=== PATIENT | female | born 1975 | race African-American/Black ===

== ENCOUNTER 2016-09-13 12:18 | Emergency (ER) | payer OTHER ==
[~2016-09-13] VITALS: Ht 175.3 cm; Wt 65.4 kg
[~2016-09-13 12:18] MED LIST: CEPHALEXIN500 MG PO; FIORICET PO; FLEXERIL PO; LISINOPRIL10 MG PO; MEDDOSEPAK PO; NAPROSYN500 MG PO; PENICILLN VK500 MG PO; PREDNISONE10 MG PO; ROBITUSSIN AC10 ML PO; TENORMIN25 MG PO; TRAMADOL HYDROC50 MG PO; ULTRAM50 M1 PO; ZOFRAN ODT4 MG PO
[2016-09-13 12:20] VITALS: BP 147/89
[2016-09-13] MEDS ORDERED: ATENOLOL25 MG PO (12:27)
[2016-09-13] MEDS ORDERED: FLUOXETINE10 M2 PO (12:29)
== END 2016-09-13 13:25 | disposition left against medical advice (07) | DRG 605 ==
LOC: ED 12:18
DX: S50.311A Abrasion of right elbow, initial encounter (principal); I10 Essential (primary) hypertension; S90.811A Abrasion, right foot, initial encounter; M48.00 Spinal stenosis, site unspecified; F17.210 Nicotine dependence, cigarettes, uncomplicated; V49.88XA Car occupant (driver) (passenger) injured in other specified transport accidents, initial encounter; Z91.19 Patient's noncompliance with other medical treatment and regimen

== ENCOUNTER 2016-11-04 10:33 | Emergency (ER) | payer OTHER ==
[~2016-11-04] VITALS: Ht 175.3 cm; Wt 65.0 kg
[~2016-11-04 10:33] MED LIST changes: +ATENOLOL25 MG PO; +FLUOXETINE10 M2 PO
[2016-11-04] MEDS ORDERED: MIRTAZAPINE15 MG PO (10:41)
[2016-11-04] MEDS ORDERED: SOMA350 MG PO (11:27)
[2016-11-04 11:35] VITALS: BP 123/75
== END 2016-11-04 11:35 | disposition home or self-care (01) | DRG 93 ==
LOC: ED 10:33
DX: G89.29 Other chronic pain (principal); I10 Essential (primary) hypertension; M79.601 Pain in right arm; M25.531 Pain in right wrist; Z72.0 Tobacco use; M54.5 Low back pain

== ENCOUNTER 2017-02-07 16:38 | Emergency (ER) | payer OTHER ==
[~2017-02-07] VITALS: Ht 175.3 cm; Wt 70.0 kg
[~2017-02-07 16:38] MED LIST changes: +MIRTAZAPINE15 MG PO; +SOMA350 MG PO
[2017-02-07 17:15] LABS: URINE BILIRUBIN - DIPSTICK NEGATIVE (NEGATIVE); URINE BLOOD DIPSTICK LARGE (NEGATIVE); URINE COLOR YELLOW; URINE GLUCOSE - DIPSTICK NEGATIVE (NEGATIVE); URINE KETONE NEGATIVE (NEGATIVE); URINE LEUK ESTERASE NEGATIVE (NEGATIVE); URINE NITRITE - DIPSTICK NEGATIVE (Negative); URINE PH 7.5 (4.5-8.0); URINE PROTEIN - DIPSTICK NEGATIVE (NEG-TRACE)
[2017-02-07 17:16] LABS: URINE CLARITY HAZY
[2017-02-07 17:23] LABS: URINE RBC 25-50 RBC/hpf (0-5); URINE SQUAMOUS EPITHELIAL CELL FEW EPI/hpf (0-FEW)
[2017-02-07] MEDS ORDERED: TAMSULOSIN0.4 MG PO (17:34)
[2017-02-07] MEDS ORDERED: TRAMADOL HYDROC50 MG PO (17:34)
[2017-02-07] MEDS ORDERED: CIPROFLOXACIN250 MG PO ×2 (17:34→20:49)
[2017-02-07 18:11] LABS: HEMATOCRIT 35.9 % (37.0-47.0); HEMOGLOBIN 11.7 g/dl (12.0-16.0); IMMATURE GRANULOCYTES 0.2 % (0.0-1.0); MEAN CELL VOLUME 79.4 fL CALC (80.0-100.0); MEAN CORPUSCULAR HGB 25.9 pG CALC (26.0-32.0); MEAN CORPUSCULAR HGB CONC 32.6 g/L CALC (32.0-36.0); NEUT# 3.17 thou/uL (2.00-7.15); RED BLOOD COUNT 4.52 mill/uL (4.20-5.60); RED CELL DISTRI WIDTH 15.2 % (11.5-15.5)
[2017-02-07 18:21] LABS: ALBUMIN 3.7 g/dL (3.2-5.0); ALKALINE PHOSPHATASE 74 u/l (38-126); ANION GAP 10 (6-22 (CALC)); BILIRUBIN, TOTAL 0.2 mg/dL (0.0-1.4); BUN 10 mg/dL (7-17); BUN/CREATININE RATIO 9 (12-20 (CALC)); CARBON DIOXIDE 25 mmol/l (22-30); CHLORIDE 113 mmol/l (95-108); CREATININE 1.1 mg/dL (0.5-1.0); GFR 55 ML/MIN (>=60 (CALC)); GFR FOR AFR.AMER. > 60 ML/MIN (>=60 (CALC)); GLUCOSE 94 mg/dL (65-105); POTASSIUM 3.8 mmol/l (3.5-5.1); SGOT/AST 17 u/l (14-36); SGPT/ALT 24 u/l (9-52); SODIUM 145 mmol/l (137-146); TOTAL PROTEIN 6.6 g/dL (6.3-8.2)
[2017-02-07 20:42] VITALS: BP 131/68
== END 2017-02-07 21:12 | disposition home or self-care (01) | DRG 392 ==
LOC: ED 16:38
PROVIDERS: Emergency Medicine
DX: R10.9 Unspecified abdominal pain (principal); M54.5 Low back pain; R31.9 Hematuria, unspecified; R10.2 Pelvic and perineal pain; R30.0 Dysuria

== ENCOUNTER 2017-03-06 00:49 | Emergency (ER) | payer OTHER ==
[~2017-03-06] VITALS: Ht 175.3 cm; Wt 67.2 kg
[~2017-03-06 00:49] MED LIST changes: +CIPROFLOXACIN250 MG PO; +TAMSULOSIN0.4 MG PO
[2017-03-06 02:13] LABS: URINE BILIRUBIN - DIPSTICK NEGATIVE (NEGATIVE); URINE BLOOD DIPSTICK LARGE (NEGATIVE); URINE COLOR YELLOW; URINE GLUCOSE - DIPSTICK NEGATIVE (NEGATIVE); URINE KETONE TRACE mg/dL (NEGATIVE); URINE NITRITE - DIPSTICK NEGATIVE (Negative); URINE PH 5.5 (4.5-8.0); URINE PROTEIN - DIPSTICK TRACE mg/dL (NEG-TRACE); URINE SPECIFIC GRAVITY >=1.030; URINE UROBILINOGEN - DIPSTICK 0.2 E.U./dL (0.2)
[2017-03-06 02:15] LABS: HEMATOCRIT 41.4 % (37.0-47.0); HEMOGLOBIN 13.5 g/dl (12.0-16.0); IMMATURE GRANULOCYTES 0.1 % (0.0-1.0); MEAN CORPUSCULAR HGB 25.8 pG CALC (26.0-32.0); MEAN CORPUSCULAR HGB CONC 32.6 g/L CALC (32.0-36.0); NEUT# 3.63 thou/uL (2.00-7.15); RED BLOOD COUNT 5.24 mill/uL (4.20-5.60); RED CELL DISTRI WIDTH 14.3 % (11.5-15.5)
[2017-03-06 02:16] LABS: URINE CLARITY SL CLOUDY; URINE LEUK ESTERASE MODERATE (NEGATIVE)
[2017-03-06 02:19] LABS: BARBITURATES NEGATIVE (NEGATIVE); COCAINE POSITIVE (NEGATIVE); METHADONE NEGATIVE (NEGATIVE); OXCYCODONE NEGATIVE (NEGATIVE); TETRAHYDROCANNABIONOL POSITIVE (NEGATIVE); TRICYLIC ANTIDEPRESSANTS NEGATIVE (NEGATIVE)
[2017-03-06 02:25] LABS: URINE BACTERIA MANY hpf; URINE SQUAMOUS EPITHELIAL CELL FEW EPI/hpf (0-FEW); URINE WBC >100 WBC/hpf (0-5)
[2017-03-06 02:46] LABS: ALBUMIN 4.6 g/dL (3.2-5.0); ALKALINE PHOSPHATASE 94 u/l (38-126); ANION GAP 15 (6-22 (CALC)); BILIRUBIN, TOTAL 0.7 mg/dL (0.0-1.4); BUN 9 mg/dL (7-17); BUN/CREATININE RATIO 9 (12-20 (CALC)); CALCIUM 10.5 mg/dL (8.4-10.2); CARBON DIOXIDE 22 mmol/l (22-30); CHLORIDE 110 mmol/l (95-108); GFR > 60 ML/MIN (>=60 (CALC)); GFR FOR AFR.AMER. > 60 ML/MIN (>=60 (CALC)); GLUCOSE 111 mg/dL (65-105); POTASSIUM 3.9 mmol/l (3.5-5.1); SGOT/AST 36 u/l (14-36); SGPT/ALT 22 u/l (9-52); SODIUM 143 mmol/l (137-146); TOTAL PROTEIN 8.3 g/dL (6.3-8.2)
[2017-03-06] MEDS ORDERED: IBUPROFEN600 MG PO (05:08)
[2017-03-06] MEDS ORDERED: ORPHENADRINE100 MG PO (05:08)
[2017-03-06 05:15] VITALS: BP 119/65
== END 2017-03-06 05:15 | disposition home or self-care (01) | DRG 93 ==
LOC: ED 00:49
PROVIDERS: Emergency Medicine
DX: G89.29 Other chronic pain (principal); F14.10 Cocaine abuse, uncomplicated; M54.5 Low back pain; R51 Headache; M79.604 Pain in right leg; F17.210 Nicotine dependence, cigarettes, uncomplicated

== ENCOUNTER 2017-12-30 09:03 | Emergency (ER) | payer OTHER ==
[~2017-12-30] VITALS: Ht 175.3 cm; Wt 71.8 kg
[~2017-12-30 09:03] MED LIST changes: +IBUPROFEN600 MG PO; +ORPHENADRINE100 MG PO
[2017-12-30 09:47] LABS: ALBUMIN 4.2 g/dL (3.2-5.0); ALKALINE PHOSPHATASE 61 u/l (38-126); ANION GAP 16 (6-22 (CALC)); BILIRUBIN, TOTAL 0.6 mg/dL (0.0-1.4); BUN 7 mg/dL (7-17); BUN/CREATININE RATIO 8 (12-20 (CALC)); CARBON DIOXIDE 24 mmol/l (22-30); CHLORIDE 110 mmol/l (95-108); GFR > 60 ML/MIN (>=60 (CALC)); GFR FOR AFR.AMER. > 60 ML/MIN (>=60 (CALC)); POTASSIUM 3.6 mmol/l (3.5-5.1); SGOT/AST 17 u/l (14-36); SODIUM 146 mmol/l (137-146); TOTAL PROTEIN 7.8 g/dL (6.3-8.2)
[2017-12-30 09:54] LABS: HEMATOCRIT 40.9 % (37.0-47.0); HEMOGLOBIN 13.5 g/dl (12.0-16.0); IMMATURE GRANULOCYTES 0.2 % (0.0-5.0); MEAN CELL VOLUME 78.7 fL CALC (80.0-100.0); NEUT# 2.9 thou/uL (2.00-7.15); RED BLOOD COUNT 5.2 mill/uL (4.20-5.60); RED CELL DISTRI WIDTH 14.5 % (11.5-15.5)
[2017-12-30 10:29] LABS: URINE BLOOD DIPSTICK LARGE (NEGATIVE); URINE COLOR YELLOW; URINE GLUCOSE - DIPSTICK NEGATIVE (NEGATIVE); URINE KETONE TRACE mg/dL (NEGATIVE); URINE NITRITE - DIPSTICK NEGATIVE (Negative); URINE PROTEIN - DIPSTICK 30 mg/dL (NEG-TRACE)
[2017-12-30 10:31] LABS: URINE BILIRUBIN - DIPSTICK SMALL (NEGATIVE); URINE LEUK ESTERASE LARGE (NEGATIVE)
[2017-12-30 10:32] LABS: URINE CLARITY CLOUDY
[2017-12-30 10:42] LABS: URINE WBC 50-100 WBC/hpf (0-5)
[2017-12-30 10:43] LABS: BARBITURATES NEGATIVE (NEGATIVE); COCAINE POSITIVE (NEGATIVE); METHADONE NEGATIVE (NEGATIVE); OXCYCODONE NEGATIVE (NEGATIVE); TETRAHYDROCANNABIONOL POSITIVE (NEGATIVE); TRICYLIC ANTIDEPRESSANTS NEGATIVE (NEGATIVE); URINE BACTERIA MODERATE hpf; URINE EPITHELIAL CELLS MODERATE EPI/hpf (0-FEW)
[2017-12-30] MEDS ORDERED: BACTRIM DS1 TAB PO (11:01)
[2017-12-30 11:12] VITALS: BP 159/87
== END 2017-12-30 11:28 | disposition home or self-care (01) ==
LOC: ED 09:03
PROVIDERS: Emergency Medicine
DX: N39.0 Urinary tract infection, site not specified (principal); R42 Dizziness and giddiness; R78.4 Finding of other drugs of addictive potential in blood; R78.2 Finding of cocaine in blood; I10 Essential (primary) hypertension; F17.200 Nicotine dependence, unspecified, uncomplicated; R94.31 Abnormal electrocardiogram [ECG] [EKG]; R20.2 Paresthesia of skin

== ENCOUNTER 2018-01-08 21:53 | Emergency (ER) | payer OTHER ==
[~2018-01-08] VITALS: Ht 175.3 cm; Wt 89.0 kg
[~2018-01-08 21:53] MED LIST changes: +BACTRIM DS1 TAB PO
[2018-01-08] MEDS ORDERED: METOPROL TAR25 MG PO (22:33)
[2018-01-08 22:50] LABS: HEMATOCRIT 39.2 % (37.0-47.0); HEMOGLOBIN 12.6 g/dl (12.0-16.0); IMMATURE GRANULOCYTES 0.1 % (0.0-5.0); MEAN CORPUSCULAR HGB CONC 32.1 g/L CALC (32.0-36.0); NEUT# 3.88 thou/uL (2.00-7.15); RED BLOOD COUNT 4.84 mill/uL (4.20-5.60); RED CELL DISTRI WIDTH 14.8 % (11.5-15.5)
[2018-01-08 22:53] LABS: URINE BILIRUBIN - DIPSTICK NEGATIVE (NEGATIVE); URINE BLOOD DIPSTICK LARGE (NEGATIVE); URINE COLOR YELLOW; URINE GLUCOSE - DIPSTICK NEGATIVE (NEGATIVE); URINE KETONE NEGATIVE (NEGATIVE); URINE NITRITE - DIPSTICK NEGATIVE (Negative); URINE PH 5.5 (4.5-8.0); URINE PROTEIN - DIPSTICK NEGATIVE (NEG-TRACE); URINE SPECIFIC GRAVITY >=1.030; URINE UROBILINOGEN - DIPSTICK 0.2 E.U./dL (0.2)
[2018-01-08 22:54] LABS: URINE CLARITY SL CLOUDY; URINE LEUK ESTERASE MODERATE (NEGATIVE)
[2018-01-08 22:56] LABS: BARBITURATES NEGATIVE (NEGATIVE); COCAINE POSITIVE (NEGATIVE); METHADONE NEGATIVE (NEGATIVE); TETRAHYDROCANNABIONOL POSITIVE (NEGATIVE); TRICYLIC ANTIDEPRESSANTS NEGATIVE (NEGATIVE)
[2018-01-08 22:57] LABS: OXCYCODONE NEGATIVE (NEGATIVE)
[2018-01-08 23:02] LABS: URINE SQUAMOUS EPITHELIAL CELL MODERATE EPI/hpf (0-FEW); URINE WBC 20-50 WBC/hpf (0-5)
[2018-01-08 23:03] LABS: URINE BACTERIA MANY hpf; URINE TRICHOMONAS MODERATE hpf
[2018-01-08 23:07] LABS: ALKALINE PHOSPHATASE 66 u/l (38-126); ANION GAP 12 (6-22 (CALC)); BILIRUBIN, TOTAL 0.3 mg/dL (0.0-1.4); BUN 9 mg/dL (7-17); BUN/CREATININE RATIO 9 (12-20 (CALC)); CARBON DIOXIDE 23 mmol/l (22-30); CHLORIDE 110 mmol/l (95-108); GFR > 60 ML/MIN (>=60 (CALC)); GFR FOR AFR.AMER. > 60 ML/MIN (>=60 (CALC)); POTASSIUM 3.9 mmol/l (3.5-5.1); SGOT/AST 14 u/l (14-36); SODIUM 142 mmol/l (137-146); TOTAL PROTEIN 7.4 g/dL (6.3-8.2)
[2018-01-08 23:14] LABS: ETHYL ALCOHOL 0 mg/dl (0-30)
[2018-01-08] MEDS ORDERED: CIPROFLOXACN500 MG PO ×2 (23:40→23:59)
[2018-01-09 00:57] VITALS: BP 111/69
== END 2018-01-09 00:40 | disposition designated cancer center or children's hospital (05) ==
LOC: ED 21:53
PROVIDERS: Emergency Medicine
DX: T14.91XA Suicide attempt, initial encounter (principal); T40.5X2A Poisoning by cocaine, intentional self-harm, initial encounter; T40.7X2A Poisoning by cannabis (derivatives), intentional self-harm, initial encounter; N39.0 Urinary tract infection, site not specified; F31.9 Bipolar disorder, unspecified; F20.9 Schizophrenia, unspecified; R00.1 Bradycardia, unspecified; Y92.009 Unspecified place in unspecified non-institutional (private) residence as the place of occurrence of the external cause

== ENCOUNTER 2018-02-09 00:03 | Emergency (ER) | payer OTHER ==
[~2018-02-09] VITALS: Ht 175.3 cm; Wt 69.5 kg
[~2018-02-09 00:03] MED LIST changes: +CIPROFLOXACN500 MG PO; +METOPROL TAR25 MG PO
[2018-02-09 00:35] LABS: HEMATOCRIT 37.1 % (37.0-47.0); IMMATURE GRANULOCYTES 0.1 % (0.0-5.0); MEAN CELL VOLUME 81.4 fL CALC (80.0-100.0); MEAN CORPUSCULAR HGB 26.3 pG CALC (26.0-32.0); MEAN CORPUSCULAR HGB CONC 32.3 g/L CALC (32.0-36.0); NEUT# 2.6 thou/uL (2.00-7.15); RED BLOOD COUNT 4.56 mill/uL (4.20-5.60); RED CELL DISTRI WIDTH 14.7 % (11.5-15.5)
[2018-02-09] MEDS ORDERED: TESSALON PERLE100 MG PO (01:17)
[2018-02-09 01:21] VITALS: BP 131/69
== END 2018-02-09 01:25 | disposition home or self-care (01) ==
LOC: ED 00:03
PROVIDERS: Family Medicine
DX: M94.0 Chondrocostal junction syndrome [Tietze] (principal); J20.8 Acute bronchitis due to other specified organisms; R05 Cough; R50.9 Fever, unspecified

== ENCOUNTER 2018-02-21 21:50 | Emergency (ER) | payer OTHER ==
[~2018-02-21] VITALS: Ht 175.3 cm; Wt 40.0 kg
[~2018-02-21 21:50] MED LIST changes: +TESSALON PERLE100 MG PO
[2018-02-21] MEDS ORDERED: ULTRAM50 M1 PO (22:45)
[2018-02-21 23:05] VITALS: BP 132/87
== END 2018-02-21 23:10 | disposition home or self-care (01) ==
LOC: ED 21:50
DX: S63.501A Unspecified sprain of right wrist, initial encounter (principal); X50.1XXA Overexertion from prolonged static or awkward postures, initial encounter; Y92.009 Unspecified place in unspecified non-institutional (private) residence as the place of occurrence of the external cause

== ENCOUNTER 2018-04-01 23:01 | Emergency (ER) | payer OTHER ==
[~2018-04-01] VITALS: Ht 175.3 cm; Wt 70.0 kg
[2018-04-01 23:53] LABS: URINE BILIRUBIN - DIPSTICK NEGATIVE (NEGATIVE); URINE BLOOD DIPSTICK MODERATE (NEGATIVE); URINE COLOR YELLOW; URINE GLUCOSE - DIPSTICK NEGATIVE (NEGATIVE); URINE KETONE NEGATIVE (NEGATIVE); URINE LEUK ESTERASE MODERATE (NEGATIVE); URINE NITRITE - DIPSTICK NEGATIVE (Negative); URINE PROTEIN - DIPSTICK NEGATIVE (NEG-TRACE)
[2018-04-01 23:57] LABS: BARBITURATES NEGATIVE (NEGATIVE); COCAINE POSITIVE (NEGATIVE); METHADONE NEGATIVE (NEGATIVE); OXCYCODONE NEGATIVE (NEGATIVE); TETRAHYDROCANNABIONOL POSITIVE (NEGATIVE); TRICYLIC ANTIDEPRESSANTS NEGATIVE (NEGATIVE)
[2018-04-02 00:01] LABS: URINE BACTERIA FEW hpf; URINE SQUAMOUS EPITHELIAL CELL FEW EPI/hpf (0-FEW)
[2018-04-02] MEDS ORDERED: CIPROFLOXACN500 MG PO (01:37)
[2018-04-02 01:44] VITALS: BP 138/73
== END 2018-04-02 01:50 | disposition home or self-care (01) ==
LOC: ED 23:01
PROVIDERS: Emergency Medicine
DX: R51 Headache (principal); N39.0 Urinary tract infection, site not specified; F19.10 Other psychoactive substance abuse, uncomplicated; I10 Essential (primary) hypertension; F31.9 Bipolar disorder, unspecified; F20.9 Schizophrenia, unspecified; F17.200 Nicotine dependence, unspecified, uncomplicated

== ENCOUNTER 2018-05-21 13:35 | Emergency (ER) | payer OTHER ==
[~2018-05-21] VITALS: Ht 175.3 cm; Wt 70.0 kg
[2018-05-21] MEDS ORDERED: SEROQUEL100 MG PO (13:44)
[2018-05-21] MEDS ORDERED: FLUOXETINE10 M2 PO (13:45)
[2018-05-21] MEDS ORDERED: DEPAKOTE500 MG PO (13:45)
[2018-05-21 15:05] VITALS: BP 125/77
== END 2018-05-21 15:05 | disposition home or self-care (01) ==
LOC: ED 13:35
DX: S69.91XA Unspecified injury of right wrist, hand and finger(s), initial encounter (principal); I10 Essential (primary) hypertension; F17.210 Nicotine dependence, cigarettes, uncomplicated; W22.09XA Striking against other stationary object, initial encounter; Y93.89 Activity, other specified; Y92.89 Other specified places as the place of occurrence of the external cause; Y99.0 Civilian activity done for income or pay

== ENCOUNTER 2018-08-24 02:44 | Emergency (ER) | payer OTHER ==
[~2018-08-24] VITALS: Ht 175.3 cm; Wt 73.6 kg
[~2018-08-24 02:44] MED LIST changes: +DEPAKOTE500 MG PO; +SEROQUEL100 MG PO
[2018-08-24 03:28] LABS: HEMATOCRIT 37.3 % (37.0-47.0); HEMOGLOBIN 11.9 g/dl (12.0-16.0); IMMATURE GRANULOCYTES 0.2 % (0.0-5.0); MEAN CELL VOLUME 79.7 fL CALC (80.0-100.0); MEAN CORPUSCULAR HGB 25.4 pG CALC (26.0-32.0); MEAN CORPUSCULAR HGB CONC 31.9 g/L CALC (32.0-36.0); NEUT# 4.07 thou/uL (2.00-7.15); RED BLOOD COUNT 4.68 mill/uL (4.20-5.60); RED CELL DISTRI WIDTH 14.7 % (11.5-15.5)
[2018-08-24 03:31] LABS: URINE BLOOD DIPSTICK LARGE (NEGATIVE); URINE GLUCOSE - DIPSTICK NEGATIVE (NEGATIVE); URINE KETONE 15 mg/dL (NEGATIVE); URINE PH 5.5 (4.5-8.0); URINE PROTEIN - DIPSTICK 100 mg/dL (NEG-TRACE); URINE SPECIFIC GRAVITY >=1.030
[2018-08-24 03:37] LABS: URINE COLOR RED
[2018-08-24 03:38] LABS: URINE LEUK ESTERASE SMALL (NEGATIVE); URINE NITRITE - DIPSTICK POSITIVE (Negative)
[2018-08-24 03:39] LABS: URINE BILIRUBIN - DIPSTICK NEGATIVE (NEGATIVE)
[2018-08-24 03:59] LABS: URINE RBC TNTC RBC/hpf (0-5); URINE SQUAMOUS EPITHELIAL CELL FEW EPI/hpf (0-FEW)
[2018-08-24 04:00] LABS: ALBUMIN 4.2 g/dL (3.2-5.0); ALKALINE PHOSPHATASE 60 u/l (38-126); ANION GAP 12 (6-22 (CALC)); BILIRUBIN, TOTAL 0.4 mg/dL (0.0-1.4); BUN 11 mg/dL (7-17); BUN/CREATININE RATIO 10 (12-20 (CALC)); CARBON DIOXIDE 24 mmol/l (22-30); CHLORIDE 111 mmol/l (95-108); CREATININE 1.1 mg/dL (0.5-1.0); GFR 55 ML/MIN (>=60 (CALC)); GFR FOR AFR.AMER. > 60 ML/MIN (>=60 (CALC)); MAGNESIUM 1.9 mg/dL (1.6-2.3); POTASSIUM 4.1 mmol/l (3.5-5.1); SGOT/AST 16 u/l (14-36); SODIUM 143 mmol/l (137-146); TOTAL PROTEIN 7.4 g/dL (6.3-8.2); URINE BACTERIA FEW hpf
[2018-08-24 04:57] VITALS: BP 145/88
== END 2018-08-24 04:57 | disposition home or self-care (01) ==
LOC: ED 02:44
PROVIDERS: Family Medicine
DX: M79.18 Myalgia, other site (principal); R11.2 Nausea with vomiting, unspecified